=== PATIENT | male | born 1980 | race African-American/Black ===

== ENCOUNTER 2018-02-06 14:06 | Emergency (ER) | payer OTHER ==
[~2018-02-06] VITALS: Ht 193 cm; Wt 200.0 kg
[2018-02-06] MEDS ORDERED: LIDODERM 5% P1 PATCH TD (15:43)
[2018-02-06] MEDS ORDERED: IBUPROFEN600 MG PO (15:43)
[2018-02-06 16:25] VITALS: BP 162/100
== END 2018-02-06 16:28 | disposition home or self-care (01) ==
LOC: EME 14:06
DX: S40.012A Contusion of left shoulder, initial encounter (principal); V43.52XA Car driver injured in collision with other type car in traffic accident, initial encounter; Y92.410 Unspecified street and highway as the place of occurrence of the external cause
CPT/HCPCS: 99281; 99284; J1885